=== PATIENT | female | born 1995 | race Caucasian/White ===

== ENCOUNTER 2017-02-07 12:13 | Emergency (ER) | payer OTHER | END 2017-02-07 13:15 | disposition home or self-care (01) | LOC: FER 12:13 | DX: J40 Bronchitis, not specified as acute or chronic (principal); F17.210 Nicotine dependence, cigarettes, uncomplicated | CPT/HCPCS: 99283 ==

== ENCOUNTER 2017-04-23 15:55 | Emergency (ER) | payer OTHER ==
[2017-04-23 17:24] LABS: BASOPHIL 0.4 % (0-2); EOSINOPHIL 3.7 % (0-5); HCT 41.1 % (37.0-47.0); HGB 14.4 g/dl (12.5-16.0); LYMPHOCYTE 21.9 % (15-48); MCH 31.7 pg (25.0-31.0); MCV 90.5 fL (78.0-100.0); MONOCYTE 6.1 % (0-12); MPV 10.2 fL (6.0-9.5); NEUTROPHIL 67.9 % (41-80); PLT 282 K/uL (150-400); RBC 4.54 M/uL (4.20-5.40); WBC 7.6 K/uL (4.0-10.5)
[2017-04-23 17:40] LABS: ALBUMIN 4.2 g/dL (3.5-5.0); BILIRUBIN - TOTAL 0.2 mg/dL (0.1-1.0); CREATININE 0.6 mg/dL (0.5-1.0); GLOBULIN (CALCULATION) 2.8 g/dL (2.2-4.2); POTASSIUM 4.2 mmol/L (3.5-5.1)
== END 2017-04-23 17:58 | disposition home or self-care (01) ==
LOC: FER 15:55
PROVIDERS: Emergency Medicine
DX: R11.2 Nausea with vomiting, unspecified (principal); F17.210 Nicotine dependence, cigarettes, uncomplicated
CPT/HCPCS: 36415; 80053; 82150; 83690; 85025